=== PATIENT | female | born 1945 | race Asian ===

== ENCOUNTER 2018-12-21 09:55 | Emergency (ER) | payer OTHER ==
[~2018-12-21] VITALS: Ht 152.4 cm; Wt 55.3 kg
[2018-12-21 09:57] VITALS: Ht 152.4 cm; Wt 55.3 kg
--- NOTE | 2018-12-21 10:00 | NUR ---
PT TO ROOM ORTHO VIA WC.
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
[2018-12-21 10:38] LABS: BASOPHIL % 0.1 % (0-2); PLATELET COUNT 231 x10^3mcL (130-400); RED CELL DISTRIBUTION WIDTH 13.2 % (11.5-14.5)
[2018-12-21 10:54] LABS: CALCIUM 9.6 mg/dL (8.5-10.1); CARBON DIOXIDE 24.9 mmol/L (21-32); CHLORIDE SERUM 111 mmol/L (98-107); CREATININE SERUM 0.8 mg/dL (0.6-1.0); GLUCOSE SERUM 102 mg/dL (74-106); POTASSIUM SERUM 4.3 mmol/L (3.5-5.1); SODIUM SERUM 146 mmol/L (136-145)
[2018-12-21 10:59] LABS: ALBUMIN 3.7 g/dL (3.4-5.0); ALKALINE PHOSPHATASE 62 U/L (46-116); ALT/SGPT 26 U/L (14-59); AST/SGOT 21 U/L (15-37); CHOLESTEROL 189 mg/dL (<200); TOTAL PROTEIN, SERUM 7.2 g/dL (6.4-8.2)
[2018-12-21] MEDS ORDERED: LOSARTAN POTASS25 M1 PO (11:19)
[2018-12-21 11:41] LABS: AMPHETAMINE QUAL UR NONE DETECTED (See below)
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
[2018-12-21 13:16] VITALS: BP 174/81
== END 2018-12-21 13:16 | disposition left against medical advice (07) ==
LOC: ED 09:55 → DU 11:44 → ED 11:44
PROVIDERS: Emergency Medicine
DX: R55 Syncope and collapse (principal); M25.511 Pain in right shoulder; M79.604 Pain in right leg; R42 Dizziness and giddiness
CPT/HCPCS: 36415; G0378; G0480; Q0092